=== PATIENT | female | born 1985 | race Caucasian/White ===

== ENCOUNTER 2016-11-24 08:01 | Emergency (ER) | payer OTHER ==
[~2016-11-24] VITALS: Ht 154.9 cm; Wt 80.0 kg
[~2016-11-24 08:01] MED LIST: ACET1TAB40 PO; CIPR500T4 PO; IBUP-1542 PO; IBUP800T25 PO
[2016-11-24 08:04] VITALS: Ht 154.9 cm; Wt 80.0 kg
[2016-11-24] MEDS ORDERED: ONDANSETRON (ODT) 4 MG TAB ODT STA (08:17)
[2016-11-24] MEDS ORDERED: IBUPROFEN 800 MG TAB PO ONE (08:30)
[2016-11-24] MEDS ORDERED: IBUP-1542 PO (08:51)
[2016-11-24] MEDS ORDERED: ONDA4TAB14 PO (08:51)
--- NOTE | 2016-11-24 09:12 | ERD ---
ER Documentation Chief Complaint Date/Time DATE: 11/24/16 TIME: 09:10 Chief Complaint daigle since yesterday HPI Patient is a 30-year-old female with no medical problems who presents with headache. She felt dizzy as well. It is a frontal headache bilaterally. It started yesterday but was worse today. She has had nausea and one episode of vomiting yesterday. She denies fevers. The patient tried Tylenol. She has had headache in the past. There was no call the primary doctor as of yet. She does not know the name of the primary doctor. ROS All systems reviewed and are negative except as per history of present illness. Medications Home Meds Active Scripts Ondansetron (Ondansetron Odt) 4 Mg Tab.rapdis, 4 MG PO Q6H Y for NAUSEA AND/OR VOMITING, #30 TAB Prov:JAIME PUGA MD 11/24/16 Ibuprofen* (Motrin*) 600 Mg Tab, 600 MG PO Q6H Y for PAIN AND OR ELEVATED TEMP, #30 TAB Prov:JAIME PUGA MD 11/24/16 Acetaminophen-Codeine* (Acetaminophen-Cod #3*) 300-30 Mg Tab, 1 TAB PO Q4H Y for PAIN LEVEL 6-10, #15 TAB Prov:CHO,ERIK 03/15/15 Ibuprofen* (Motrin*) 600 Mg Tab, 600 MG PO Q6 for PAIN LEVEL 1-5, #15 TAB Prov:CHO,ERIK 03/15/15 Ibuprofen* (Ibuprofen*) 800 Mg Tablet, 800 MG PO Q6H Y for PAIN AND OR ELEVATED TEMP, #30 TAB Prov:LILIA LOPEZ PA-C 01/24/15 Ciprofloxacin Hcl* (Ciprofloxacin Hcl*) 500 Mg Tablet, 500 MG PO BID for 7 Days , TAB Prov:LILIA LOPEZ PA-C 01/24/15 Allergies Allergies: Coded Allergies: No Known Allergy (Unverified , 10/11/13) PMhx/Soc History of Surgery: Yes () Hx Alcohol Use: No Hx Substance Use: No Hx Tobacco Use: No FmHx Family History: diabetes Physical Exam Vitals Vital Signs Date Time Temp Pulse Resp B/P Pulse Ox O2 Delivery O2 Flow Rate FiO2 11/24/16 08:04 98.1 83 18 138/78 Physical Exam Const: No acute distress Head: Atraumatic Eyes: Normal Conjunctiva ENT: Normal External Ears, Nose and Mouth. Neck: Full range of motion..~ No meningismus. Resp: Clear to auscultation bilaterally Cardio: Regular rate and rhythm, no murmurs Abd: Soft, non tender, non distended. Normal bowel sounds Skin: No petechiae or rashes Back: No midline or flank tenderness Ext: No cyanosis, or edema Neur: Awake and alert, cranial nerves II through XII intact, no slurred speech, strength is 5 out of 5 in all 4 extremities Psych: Normal Mood and Affect Results 24 hrs Current Medications Medications (Trade) Dose Ordered Sig/Joanne Route PRN Reason Start Time Stop Time Status Last Admin Dose Admin Ibuprofen (Motrin) 800 mg ONCE ONCE PO 11/24/16 08:30 11/24/16 08:31 DC 11/24/16 08:37 Ondansetron HCl (Zofran Odt) 4 mg ONCE STAT ODT 11/24/16 08:17 11/24/16 08:18 DC 11/24/16 08:37 Procedures/MDM Urine test is negative. Patient is a 22-year-old female with no medical problems who presents with dizziness and headache. The patient has nausea. The patient was given ibuprofen and Zofran. She is very well-appearing in the emergency department. Her neurologic exam is completely normal and I doubt stroke. I doubt a cranial hemorrhage or mass. I doubt subarachnoid hemorrhage or meningitis. I believe outpatient management is appropriate. The patient went to follow-up closely with her primary doctor within 24-48 hours and can return if symptoms worsen. She will be given a prescription for ibuprofen and Zofran. Departure Diagnosis: Primary Impression: Headache Headache type: unspecified Headache chronicity pattern: acute headache Intractability: not intractable Qualified Code: R51 - Acute nonintractable headache, unspecified headache type Condition: Fair Patient Instructions: Self-Care for Headaches Additional Instructions: Call your primary care doctor TOMORROW for an appointment during the next 1-2 days.See the doctor sooner or return here if your condition worsens before your appointment time. JAIME PUGA MD Nov 24, 2016 09:12
== END 2016-11-24 09:00 | disposition home or self-care (01) ==
LOC: FTE 08:01
DX: R51 Headache (principal); R11.2 Nausea with vomiting, unspecified
CPT/HCPCS: Z7502; Z7610; 99283

== ENCOUNTER 2016-12-04 19:37 | Emergency (ER) | payer OTHER ==
[~2016-12-04] VITALS: Ht 154.9 cm; Wt 81.5 kg
[~2016-12-04 19:37] MED LIST changes: +ONDA4TAB14 PO
[2016-12-04 20:14] VITALS: Ht 154.9 cm; Wt 81.5 kg
[2016-12-04] MEDS ORDERED: BELLADONNA/PHENOBARBITAL TAB PO STA (20:49)
[2016-12-04] MEDS ORDERED: FAMOTIDINE 20 MG TAB PO STA (20:49)
[2016-12-04] MEDS ORDERED: LIDOCAINE/MYLANTA 40 ML BTL PO STA (20:49)
[2016-12-04] MEDS ORDERED: ONDANSETRON (ODT) 4 MG TAB ODT STA (20:49)
[2016-12-04 21:39] LABS: ADD SCAN DIFF NO
[2016-12-04 21:43] LABS: BASOPHIL # 0.1 10^3/ul (0.0-0.1); BASOPHILS % 0.5 % (0.0-2.0); EOSINOPHILS # 0.1 10^3/ul (0.0-0.5); EOSINOPHILS % 0.8 % (0.0-7.0); HEMATOCRIT 41.1 % (37.0-47.0); HEMOGLOBIN 13.7 g/dl (12.0-16.0); LYMPHOCYTES # 2.9 10^3/ul (0.8-2.9); LYMPHOCYTES % 25.9 % (15.0-51.0); MEAN CORPUSCULAR HEMOGLOBIN 28.1 pg (29.0-33.0); MEAN CORPUSCULAR HGB CONC 33.3 g/dl (32.0-37.0); MEAN CORPUSCULAR VOLUME 84.2 fl (82.0-101.0); MEAN PLATELET VOLUME 9.6 fl (7.4-10.4); MONOCYTE # 0.8 10^3/ul (0.3-0.9); MONOCYTES % 7.2 % (0.0-11.0); NEUTROPHIL # 7.3 10^3/ul (1.6-7.5); NEUTROPHILS % 65.2 % (39.0-77.0); PLATELET COUNT 303 10^3/UL (140-415); RED BLOOD COUNT 4.88 10^6/ul (4.20-5.40); RED CELL DISTRIBUTION WIDTH 13.1 % (11.5-14.5); WHITE BLOOD COUNT 11.1 10^3/ul (4.8-10.8)
[2016-12-04 21:47] LABS: ADD UMIC YES; URINE BILIRUBIN (Dip) NEGATIVE (NEGATIVE); URINE BLOOD (Dip) NEGATIVE (NEGATIVE); URINE COLOR LT. YELLOW (YELLOW); URINE GLUCOSE (Dip) NEGATIVE (NEGATIVE); URINE KETONES (Dip) NEGATIVE (NEGATIVE); URINE LEUKOCYTE ESTERASE (Dip) TRACE (NEGATIVE); URINE NITRITE (Dip) NEGATIVE (NEGATIVE); URINE TOTAL PROTEIN (Dip) TRACE (NEGATIVE); URINE UROBILINOGEN (Dip) 1.0 E.U./dL (0.1-1.0)
[2016-12-04 21:53] LABS: ALBUMIN 4.8 g/dl (3.3-4.9)
[2016-12-04 21:54] LABS: POTASSIUM 3.1 mmol/L (3.5-5.1)
[2016-12-04 21:56] LABS: ALBUMIN/GLOBULIN RATIO 1.23; BILIRUBIN,INDIRECT 0.2 mg/dl (0-1.1); BILIRUBIN,TOTAL 0.2 mg/dl (0.2-1.3); CREATININE 0.59 mg/dl (0.44-1.00); TOTAL PROTEIN 8.7 g/dl (6.1-8.1)
[2016-12-04 21:57] LABS: CALCIUM 9.5 mg/dl (8.4-10.2)
--- NOTE | 2016-12-04 21:57 | RADRPT ---
PROCEDURE: US Abdomen (right upper quadrant). CLINICAL INDICATION: Right upper quadrant abdomen pain. TECHNIQUE: Multiple real-time longitudinal and transverse images of the right upper quadrant of th e abdomen were acquired utilizing a curved array transducer. Images were reviewed on a high-resoluti on PACS workstation. COMPARISON: None FINDINGS: The liver is normal in size and echogenicity. There is no focal hepatic lesion. The gallbladder is normal with no stones or wall thickening. There is no pericholecystic fluid rmoán ection. The bile ducts are normal with the common bile duct measuring 3.1 mm in diameter. The visualized portions of the pancreas are unremarkable with obscuration of the tail of the pancrea s. No free fluid is present. The right kidney measures 10.4 x 4.5 x 5.1 cm. There is normal echogenicity of the right kidney. There is no perinephric fluid collection. No hydronephrosis, mass, or calculus is seen. IMPRESSION: 1. Unremarkable right upper quadrant abdomen ultrasound. RPTAT: QQ .Trevor Ramírez MD, Date Time Electronically viewed and signed by .Trevor Ramírez MD, on 12/04/2016 21:57 .R/
[2016-12-04 22:11] LABS: SQUAMOUS EPITHELIAL CELL,UR MANY
[2016-12-04 22:12] LABS: BACTERIA,URINE MODERATE; URINE RBCS 0-2 /HPF (0)
[2016-12-04] MEDS ORDERED: ONDA4TAB8 PO (22:30)
[2016-12-04] MEDS ORDERED: DICY10CA60 PO (22:31)
--- NOTE | 2016-12-04 22:36 | ERD ---
ER Documentation Chief Complaint Date/Time DATE: 12/04/16 TIME: 22:34 Chief Complaint Mid AP x2 days. Nausea and vomiting HPI This is a 31-year-old female that presents to the ER with mid abdominal pain for the last 2 days. Patient today developed nausea and vomiting. Vomiting is nonbilious nonbloody. She denies any diarrhea. She denies any chest pain shortness of breath. Patient denies any urinary frequency or dysuria. Abdominal pain is severe and 9/cramping in nature. Patient tried taking ibuprofen for the pain however did not work. Her last normal menstrual period was October 30, 2016. ROS 12 point review of systems was done, all negative except per HPI. Medications Home Meds Active Scripts Dicyclomine Hcl* (Bentyl*) 10 Mg Capsule, 10 MG PO QID for 3 Days, CAP Prov:ANNIKA GOMEZ 12/04/16 Ondansetron Hcl* (Zofran*) 4 Mg Tablet, 4 MG PO Q6H for NAUSEA AND/OR VOMITING, #30 TAB Prov:ANNIKA GOMEZ 12/04/16 Ondansetron (Ondansetron Odt) 4 Mg Tab.rapdis, 4 MG PO Q6H Y for NAUSEA AND/OR VOMITING, #30 TAB Prov:JAIME PUGA MD 11/24/16 Ibuprofen* (Motrin*) 600 Mg Tab, 600 MG PO Q6H Y for PAIN AND OR ELEVATED TEMP, #30 TAB Prov:JAIME PUGA MD 11/24/16 Acetaminophen-Codeine* (Acetaminophen-Cod #3*) 300-30 Mg Tab, 1 TAB PO Q4H Y for PAIN LEVEL 6-10, #15 TAB Prov:CHO,ERIK 03/15/15 Ibuprofen* (Motrin*) 600 Mg Tab, 600 MG PO Q6 for PAIN LEVEL 1-5, #15 TAB Prov:CHO,ERIK 03/15/15 Ibuprofen* (Ibuprofen*) 800 Mg Tablet, 800 MG PO Q6H Y for PAIN AND OR ELEVATED TEMP, #30 TAB Prov:LILIA LOPEZ PA-C 01/24/15 Ciprofloxacin Hcl* (Ciprofloxacin Hcl*) 500 Mg Tablet, 500 MG PO BID for 7 Days , TAB Prov:LILIA LOPEZ PA-C 01/24/15 Allergies Allergies: Coded Allergies: No Known Allergy (Unverified , 10/11/13) PMhx/Soc History of Surgery: Yes () Hx Alcohol Use: No Hx Substance Use: No Hx Tobacco Use: No Smoking Status: Never smoker Physical Exam Vitals Vital Signs Date Time Temp Pulse Resp B/P Pulse Ox O2 Delivery O2 Flow Rate FiO2 12/04/16 20:14 97.4 101 20 135/57 100 Physical Exam GENERAL: The patient is well developed and appropriate for usual state of health , in no apparent distress. HEENT: Atraumatic. CHEST: Clear to auscultation bilaterally. There are no rales, wheezes or rhonchi. HEART: Regular rate and rhythm. No murmurs, clicks, rubs or gallops. ABDOMEN: Soft, nontender and nondistended. Good bowel sounds. No rebound or guarding. No gross peritonitis. No gross organomegaly or masses. No Zaragoza sign or McBurney point tenderness. No pulsatile masses BACK: No midline or flank tenderness. NEURO: Alert and oriented Result Diagram: 12/04/16210912/04/162109 Results 24 hrs Laboratory Tests Test 12/04/16 21:10 White Blood Count 11.110^3/ul Red Blood Count 4.8810^6/ul Hemoglobin 13.7g/dl Hematocrit 41.1% Mean Corpuscular Volume 84.2fl Mean Corpuscular Hemoglobin 28.1pg Mean Corpuscular Hemoglobin Concent 33.3g/dl Red Cell Distribution Width 13.1% Platelet Count 16928^3/UL Mean Platelet Volume 9.6fl Neutrophils % 65.2% Lymphocytes % 25.9% Monocytes % 7.2% Eosinophils % 0.8% Basophils % 0.5% Nucleated Red Blood Cells % 0.0/100WBC Neutrophils # 7.310^3/ul Lymphocytes # 2.910^3/ul Monocytes # 0.810^3/ul Eosinophils # 0.110^3/ul Basophils # 0.110^3/ul Nucleated Red Blood Cells # 0.010^3/ul Urine Color LT. YELLOW Urine Clarity CLEAR Urine pH 8.5 Urine Specific [place] 1.015 Urine Ketones NEGATIVE Urine Nitrite NEGATIVE Urine Bilirubin NEGATIVE Urine Urobilinogen 1.0 E.U./dL Urine Leukocyte Esterase TRACE Urine Microscopic RBC 0-2/HPF Urine Microscopic WBC 10-25/HPF Urine Squamous Epithelial Cells MANY Urine Amorphous Urates FEW Urine Bacteria MODERATE Urine Hemoglobin NEGATIVE Urine Glucose NEGATIVE% Urine Total Protein TRACE Sodium Level 144mmol/L Potassium Level 3.1mmol/L Chloride Level 102mmol/L Carbon Dioxide Level 29mmol/L Anion Gap 16 Blood Urea Nitrogen 10mg/dl Creatinine 0.59mg/dl Glucose Level 73mg/dl Calcium Level 9.5mg/dl Total Bilirubin 0.2mg/dl Direct Bilirubin 0.00mg/dl Indirect Bilirubin 0.2mg/dl Aspartate Amino Transf (AST/SGOT) 23IU/L Alanine Aminotransferase (ALT/SGPT) 28IU/L Alkaline Phosphatase 97IU/L Total Protein 8.7g/dl Albumin 4.8g/dl Globulin 3.90g/dl Albumin/Globulin Ratio 1.23 Lipase 106U/L Current Medications Medications (Trade) Dose Ordered Sig/Joanne Route PRN Reason Start Time Stop Time Status Last Admin Dose Admin Famotidine (Pepcid) 20 mg ONCE STAT PO 12/04/16 20:49 12/04/16 20:51 DC 12/04/16 21:47 Miscellaneous Medication (Gi Cocktail (2)) 40 ml ONCE STAT PO 12/04/16 20:49 12/04/16 20:51 DC 12/04/16 21:47 Belladonna/ Phenobarbital () 2 tab ONCE STAT PO 12/04/16 20:49 12/04/16 20:51 DC 12/04/16 21:47 Ondansetron HCl (Zofran Odt) 4 mg ONCE STAT ODT 12/04/16 20:49 12/04/16 20:51 DC 12/04/16 21:08 Procedures/MDM Differential Diagnosis: GERD, gastritis, peptic ulcer disease, pancreatitis, cholecystitis, choledocholithiasis, biliary colic, cholangitis, [id number]-[id number] , ACS/MO, Pnuemonia. There is no evidence of acute abdomen. She may be having a viral process. Does not appear dehydrated and there is no electrolyte abnormalities. There is no liver or kidney dysfunction. Suspicion for pancreatitis is low. Suspicion for gallbladder disease is low. I doubt ACS/MO as patient has denied any chest pain. Patient for appendicitis is low as patient does not have any right lower quadrant pain. Patient will be sent home with Zofran and with Riki. She is to follow-up with her primary care doctor within 1-2 days or return to ER sooner if symptoms worsen. My medical decision making was shared with the patient she understands and agrees with plan. Departure Diagnosis: Primary Impression: Abdominal pain Condition: Stable Patient Instructions: Abdominal Pain Referrals: KENRICK BURNETT (PCP) Additional Instructions: Call your primary care doctor TOMORROW for an appointment during the next 1-2 days.See the doctor sooner or return here if your condition worsens before your appointment time. ANNIKA GOMEZ Dec 04, 2016 22:36
[2016-12-04 22:59] VITALS: BP 115/81; PULSE 82; RESP 16
== END 2016-12-04 23:01 | disposition home or self-care (01) ==
LOC: FTE 19:37
DX: R10.9 Unspecified abdominal pain (principal); R11.2 Nausea with vomiting, unspecified
CPT/HCPCS: 36415; 76705; 80053; 81001; 83690; 85025; Z7502; Z7610; 81003

== ENCOUNTER 2017-06-20 10:56 | Emergency (ER) | payer OTHER ==
[~2017-06-20] VITALS: Ht 152.4 cm; Wt 89.0 kg
[~2017-06-20 10:56] MED LIST changes: +DICY10CA60 PO; +ONDA4TAB8 PO
[2017-06-20 11:06] VITALS: Ht 152.4 cm; Wt 89.0 kg
--- NOTE | 2017-06-20 12:29 | ERD ---
ER Documentation Chief Complaint Chief Complaint pelvic pain x1wk, denies vag bleed or painful urination HPI 31y/o female patient, with no significant medical history, presents to the emergency department with daughter c/o bilateral pelvic pain, that started 7 days ago. pain is dull, constant, rated 8/10, without radiation. The symptoms are associated with malaise. Denies fever, chills, N/V/D, no dysuria, no vaginal discharge, LMP 3 weeks ago. No history of previous episodes. Treatment attempted: None ROS All systems reviewed and are negative except as per history of present illness. Medications Home Meds Active Scripts Dicyclomine Hcl* (Bentyl*) 10 Mg Capsule, 10 MG PO QID for 3 Days, CAP Prov:ANNIKA GOMEZ 12/04/16 Ondansetron Hcl* (Zofran*) 4 Mg Tablet, 4 MG PO Q6H for NAUSEA AND/OR VOMITING, #30 TAB Prov:ANNIKA GOMEZ 12/04/16 Ondansetron (Ondansetron Odt) 4 Mg Tab.rapdis, 4 MG PO Q6H Y for NAUSEA AND/OR VOMITING, #30 TAB Prov:JAIME PUGA MD 11/24/16 Ibuprofen* (Motrin*) 600 Mg Tab, 600 MG PO Q6H Y for PAIN AND OR ELEVATED TEMP, #30 TAB Prov:JAIME PUGA MD 11/24/16 Acetaminophen-Codeine* (Acetaminophen-Cod #3*) 300-30 Mg Tab, 1 TAB PO Q4H Y for PAIN LEVEL 6-10, #15 TAB Prov:CHO,ERIK 03/15/15 Ibuprofen* (Motrin*) 600 Mg Tab, 600 MG PO Q6 for PAIN LEVEL 1-5, #15 TAB Prov:CHO,ERIK 03/15/15 Ibuprofen* (Ibuprofen*) 800 Mg Tablet, 800 MG PO Q6H Y for PAIN AND OR ELEVATED TEMP, #30 TAB Prov:LILIA LOPEZ PA-C 01/24/15 Ciprofloxacin Hcl* (Ciprofloxacin Hcl*) 500 Mg Tablet, 500 MG PO BID for 7 Days , TAB Prov:LILIA LOPEZ PA-C 01/24/15 Allergies Allergies: Coded Allergies: No Known Allergy (Unverified , 10/11/13) PMhx/Soc History of Surgery: Yes () Hx Alcohol Use: No Hx Substance Use: No Hx Tobacco Use: No Physical Exam Vitals Vital Signs Date Time Temp Pulse Resp B/P Pulse Ox O2 Delivery O2 Flow Rate FiO2 06/20/17 11:06 98.3 88 18 127/80 98 Physical Exam Patient is in no acute distress, vital signs stable. Alert and fully oriented. EYES: PERRLA, EOMI, Sclera and conjunctiva appear normal. EARS: Canals clear, tympanic membranes WNL THROAT: Normal oropharynx. NECK: Supple, No lymphadenopathy. Full ROM without pain or tenderness. HEART: RRR, no rubs, murmurs, clicks or gallops. LUNGS: Clear to auscultation. ABDOMEN: Soft, mild tenderness to deep palpation in pelvic area. No masses or hepatosplenomegaly. EXTREMITIES: No edema bilaterally. MUSC: Full ROM, no deformity, normal back exam Result Diagram: 06/20/17 1247 06/20/17 1247 Results 24 hrs Laboratory Tests Test 06/20/17 12:47 06/20/17 12:59 06/20/17 13:00 White Blood Count 11.310^3/ul Red Blood Count 4.8310^6/ul Hemoglobin 13.9g/dl Hematocrit 41.5% Mean Corpuscular Volume 85.9fl Mean Corpuscular Hemoglobin 28.8pg Mean Corpuscular Hemoglobin Concent 33.5g/dl Red Cell Distribution Width 13.0% Platelet Count 16162^3/UL Mean Platelet Volume 9.7fl Neutrophils % 69.5% Lymphocytes % 24.5% Monocytes % 4.3% Eosinophils % 0.8% Basophils % 0.3% Nucleated Red Blood Cells % 0.0/100WBC Neutrophils # 7.810^3/ul Lymphocytes # 2.810^3/ul Monocytes # 0.510^3/ul Eosinophils # 0.110^3/ul Basophils # 0.010^3/ul Nucleated Red Blood Cells # 0.010^3/ul Sodium Level 143mmol/L Potassium Level 3.4mmol/L Chloride Level 106mmol/L Carbon Dioxide Level 27mmol/L Anion Gap 13 Blood Urea Nitrogen 5mg/dl Creatinine 0.63mg/dl Glucose Level 85mg/dl Calcium Level 10.1mg/dl Total Bilirubin 0.3mg/dl Direct Bilirubin 0.00mg/dl Indirect Bilirubin 0.3mg/dl Aspartate Amino Transf (AST/SGOT) 24IU/L Alanine Aminotransferase (ALT/SGPT) 37IU/L Alkaline Phosphatase 96IU/L Total Protein 8.2g/dl Albumin 4.5g/dl Globulin 3.70g/dl Albumin/Globulin Ratio 1.21 Lipase 117U/L Urine Color YELLOW Urine Clarity CLEAR Urine pH 7.0 Urine Specific [place] 1.020 Urine Ketones TRACEmg/dL Urine Nitrite NEGATIVEmg/dL Urine Bilirubin NEGATIVEmg/dL Urine Urobilinogen NEGATIVEmg/dL Urine Leukocyte Esterase NEGATIVELeu/ul Urine Hemoglobin NEGATIVEmg/dL Urine Glucose NEGATIVEmg/dL Urine Total Protein NEGATIVEmg/dl Urine Test POSITIVE Beta HCG, Quantitative 465.7mIU/ml PROCEDURE: US Pelvis. CLINICAL INDICATION: Pelvic pain for 1 week. TECHNIQUE: Multiple sonographic images of the pelvis were obtained utilizing a transabdominal and endovaginal technique. The images were reviewed on a PACS workstation. COMPARISON: OB sonogram 01/24/2015. FINDINGS: The uterus is visualized and measures 8.8 cm sagittal by 4.8 cm AP by 6.7 cm transverse.. The endometrial echo complex is normal and measures 1.2 cm. Small Nabothian cysts are noted on the cervix.. There is no evidence for free fluid. The right ovary has a normal echotexture and measures 2.8 by 2.2 x 3.1 cm . The left ovary has a normal echotexture and measures 2.3 x 2.4 x 2.4 cm. No adnexal masses are noted. IMPRESSION: Unremarkable pelvic ultrasound. Procedures/MDM 31 y/o female, , presents to the ED c/o pelvic pain for 7 days, the patient was found to be . Vital signs stable, Physical exam unremarkable, no evidence of acute abdomen. Differential diagnosis include but not limited to: Ectopic , threatened , UTI, appendicitis, ovarian cyst. Pertinent Data: Labs: CBC: normal, CMP: normal kidney and liver function, normal electrolytes. Lipase: normal Pelvic US: The uterus is visualized and measures 8.8 cm sagittal by 4.8 cm AP by 6.7 cm transverse.. The endometrial echo complex is normal and measures 1.2 cm. Small Nabothian cysts are noted on the cervix.. There is no evidence for free fluid. The right ovary has a normal echotexture and measures 2.8 by 2.2 x 3.1 cm . The left ovary has a normal echotexture and measures 2.3 x 2.4 x 2.4 cm. No adnexal masses are noted. Physical examination and clinical presentation consistent most likely with pelvic pain during , without acute abdomen. During the ED course the patient remained stable. Results and medical impression discussed with patient who agrees with management. The patient will be discharged home with precautions. If symptoms persist, worsen or new symptoms develop, then patient is instructed to follow-up with the primary care provider. If the patient is unable to see the primary care provider, then return to the ED immediately. Departure Diagnosis: Primary Impression: Additional Impression: Pelvic pain affecting Condition: Stable CARROLL HOLLINS MD Jun 20, 2017 12:29
[2017-06-20 13:02] LABS: BASOPHILS % 0.3 % (0.0-2.0); EOSINOPHILS # 0.1 10^3/ul (0.0-0.5); EOSINOPHILS % 0.8 % (0.0-7.0); HEMATOCRIT 41.5 % (37.0-47.0); HEMOGLOBIN 13.9 g/dl (12.0-16.0); LYMPHOCYTES # 2.8 10^3/ul (0.8-2.9); LYMPHOCYTES % 24.5 % (15.0-51.0); MEAN CORPUSCULAR HEMOGLOBIN 28.8 pg (29.0-33.0); MEAN CORPUSCULAR HGB CONC 33.5 g/dl (32.0-37.0); MEAN CORPUSCULAR VOLUME 85.9 fl (82.0-101.0); MEAN PLATELET VOLUME 9.7 fl (7.4-10.4); MONOCYTE # 0.5 10^3/ul (0.3-0.9); MONOCYTES % 4.3 % (0.0-11.0); NEUTROPHIL # 7.8 10^3/ul (1.6-7.5); NEUTROPHILS % 69.5 % (39.0-77.0); PLATELET COUNT 300 10^3/UL (140-415); RED BLOOD COUNT 4.83 10^6/ul (4.20-5.40); WHITE BLOOD COUNT 11.3 10^3/ul (4.8-10.8)
[2017-06-20 13:16] LABS: ADD UMIC NO; UR ASCORBIC ACID NEGATIVE (NEGATIVE); UR BILIRUBIN (Dip) NEGATIVE (NEGATIVE); UR BLOOD (Dip) NEGATIVE (NEGATIVE); UR CLARITY CLEAR (CLEAR); UR COLOR YELLOW (YELLOW); UR GLUCOSE (Dip) NEGATIVE (NEGATIVE); UR KETONES (Dip) TRACE mg/dL (NEGATIVE); UR LEUKOCYTE ESTERASE (Dip) NEGATIVE Leu/ul (NEGATIVE); UR NITRITE (Dip) NEGATIVE (NEGATIVE); UR TOTAL PROTEIN (Dip) NEGATIVE (NEGATIVE); UR UROBILINOGEN (Dip) NEGATIVE (NEGATIVE)
[2017-06-20 13:23] LABS: ALBUMIN 4.5 g/dl (3.3-4.9); ALBUMIN/GLOBULIN RATIO 1.21; BILIRUBIN,INDIRECT 0.3 mg/dl (0-1.1); BILIRUBIN,TOTAL 0.3 mg/dl (0.2-1.3); CALCIUM 10.1 mg/dl (8.4-10.2); CREATININE 0.63 mg/dl (0.44-1.00); POTASSIUM 3.4 mmol/L (3.5-5.1); TOTAL PROTEIN 8.2 g/dl (6.1-8.1)
[2017-06-20 15:26] VITALS: BP 122/78; PULSE 66; RESP 18; TEMP 98.3
== END 2017-06-20 15:27 | disposition home or self-care (01) ==
LOC: FTE 10:56
DX: R10.2 Pelvic and perineal pain (principal); Z33.1 Pregnant state, incidental
CPT/HCPCS: 76801; 76817; 80053; 81003; 83690; 84702; 84703; 85025; 86900; 86901; Z7502

== ENCOUNTER 2017-08-04 05:13 | Emergency (ER) | payer OTHER ==
[~2017-08-04] VITALS: Ht 152.4 cm; Wt 85.9 kg
[2017-08-04 05:25] VITALS: Ht 152.4 cm; Wt 85.9 kg
[2017-08-04 05:30] VITALS: BP 129/77; RESP 17; TEMP 98.3
--- NOTE | 2017-08-04 07:42 | RADRPT ---
PROCEDURE: OB Ultrasound. CLINICAL INDICATION: Abdominal and pelvic pain. Vomiting times 1 day. TECHNIQUE: Ultrasound of the pelvis was performed with transabdominal sonography in the axial and sa gittal planes. COMPARISON: Pelvic ultrasound from 06/20/2017 FINDINGS: The uterus appears normal in size and echotexture. There is an intrauterine gestational sac with vis ualization of the pole which demonstrates cardiac activity at 154 beats per minute. The mean c rown-rump length is 5.33 cm consistent with a 23-hlxu-6-day gestation. There is a probable tiny subc horionic hemorrhage present. Ovaries appear normal in size and echotexture bilaterally. The right ov melvin measures 3.9 x 3.2 x 3.8 cm. The left ovary measures 2.2 x 3.0 x 2.6 cm. There are no adnexal ma sses and no free fluid seen in the cul-de-sac. IMPRESSION: 1. Single living intrauterine gestation with a mean gestational age by ultrasound of 12 weeks 0 da ys plus or minus 8 days. Estimated date of delivery by ultrasound criteria 02 16 20:18. 2. Probable tiny subchorionic hemorrhage.. RPTAT: [facility] Physician Renetta Date Time Electronically viewed and signed by Physician Renetta on 08/04/2017 07:41 /
[2017-08-04 07:49] LABS: BASOPHILS % 0.2 % (0.0-2.0); EOSINOPHILS # 0.1 10^3/ul (0.0-0.5); EOSINOPHILS % 0.6 % (0.0-7.0); HEMATOCRIT 37.7 % (37.0-47.0); HEMOGLOBIN 13.3 g/dl (12.0-16.0); LYMPHOCYTES # 2.1 10^3/ul (0.8-2.9); LYMPHOCYTES % 14.3 % (15.0-51.0); MEAN CORPUSCULAR HEMOGLOBIN 29.8 pg (29.0-33.0); MEAN CORPUSCULAR HGB CONC 35.3 g/dl (32.0-37.0); MEAN CORPUSCULAR VOLUME 84.5 fl (82.0-101.0); MEAN PLATELET VOLUME 9.4 fl (7.4-10.4); MONOCYTE # 0.5 10^3/ul (0.3-0.9); MONOCYTES % 3.6 % (0.0-11.0); NEUTROPHIL # 11.8 10^3/ul (1.6-7.5); NEUTROPHILS % 80.7 % (39.0-77.0); PLATELET COUNT 235 10^3/UL (140-415); RED BLOOD COUNT 4.46 10^6/ul (4.20-5.40); RED CELL DISTRIBUTION WIDTH 12.6 % (11.5-14.5); WHITE BLOOD COUNT 14.7 10^3/ul (4.8-10.8)
[2017-08-04 07:59] LABS: ADD UMIC YES; UR ASCORBIC ACID NEGATIVE (NEGATIVE); UR BILIRUBIN (Dip) NEGATIVE (NEGATIVE); UR BLOOD (Dip) 1+ mg/dL (NEGATIVE); UR CLARITY CLEAR (CLEAR); UR COLOR YELLOW (YELLOW); UR GLUCOSE (Dip) NEGATIVE (NEGATIVE); UR KETONES (Dip) 1+ mg/dL (NEGATIVE); UR LEUKOCYTE ESTERASE (Dip) NEGATIVE Leu/ul (NEGATIVE); UR MUCUS MANY /HPF (NONE SEEN); UR NITRITE (Dip) NEGATIVE (NEGATIVE); UR RBC 4 /HPF (0-5); UR SPECIFIC GRAVITY (Dip) 1.034 (1.003-1.030); UR TOTAL PROTEIN (Dip) 1+ mg/dl (NEGATIVE); UR UROBILINOGEN (Dip) NEGATIVE (NEGATIVE)
[2017-08-04] MEDS ORDERED: ACET500C5 PO (08:27)
[2017-08-04 09:44] VITALS: PULSE 88
--- NOTE | 2017-08-04 17:38 | ERD ---
ER Documentation Chief Complaint Chief Complaint N/V/ Chills/Diarrhea/Abd & Flank Pain HPI 31-year-old female who is approximately 12 weeks is complaining of abdominal pain, nausea, vomiting, and diarrhea since yesterday. Patient reports abdominal pain is constant, cramping like. She had 2 episode of nonbilious and nonbloody vomiting and 2 episode of nonbloody diarrhea. Patient is , LMP 04/06/2017. Denies fever or chills. Denies dysuria. Denies vaginal bleeding. ROS All systems reviewed and are negative except as per history of present illness. Medications Home Meds Active Scripts Acetaminophen* (Tylophen*) 500 Mg Capsule, 1 CAP PO Q6H Y for PAIN AND OR ELEVATED TEMP, #20 CAP Prov:VIDAL AGUILAR PLATE KEEPER 08/04/17 Dicyclomine Hcl* (Bentyl*) 10 Mg Capsule, 10 MG PO QID for 3 Days, CAP Prov:ANNIKA GOMEZ C 12/04/16 Ondansetron Hcl* (Zofran*) 4 Mg Tablet, 4 MG PO Q6H for NAUSEA AND/OR VOMITING, #30 TAB Prov:ANNIKA GOMEZ 12/04/16 Ondansetron (Ondansetron Odt) 4 Mg Tab.rapdis, 4 MG PO Q6H Y for NAUSEA AND/OR VOMITING, #30 TAB Prov:JAIME PUGA MD 11/24/16 Ibuprofen* (Motrin*) 600 Mg Tab, 600 MG PO Q6H Y for PAIN AND OR ELEVATED TEMP, #30 TAB Prov:JAIME PUGA MD 11/24/16 Acetaminophen-Codeine* (Acetaminophen-Cod #3*) 300-30 Mg Tab, 1 TAB PO Q4H Y for PAIN LEVEL 6-10, #15 TAB Prov:CHO,ERIK 03/15/15 Ibuprofen* (Motrin*) 600 Mg Tab, 600 MG PO Q6 for PAIN LEVEL 1-5, #15 TAB Prov:CHO,ERIK 03/15/15 Ibuprofen* (Ibuprofen*) 800 Mg Tablet, 800 MG PO Q6H Y for PAIN AND OR ELEVATED TEMP, #30 TAB Prov:LILIA LOPEZ PA-C 01/24/15 Ciprofloxacin Hcl* (Ciprofloxacin Hcl*) 500 Mg Tablet, 500 MG PO BID for 7 Days , TAB Prov:LILIA LOPEZ PA-C 01/24/15 Allergies Allergies: Coded Allergies: No Known Allergy (Unverified , 08/04/17) PMhx/Soc History of Surgery: Yes (caesarian section x 1 2010) Anesthesia Reaction: No Hx Alcohol Use: No Hx Substance Use: No Hx Tobacco Use: No Smoking Status: Never smoker Physical Exam Vitals Vital Signs Date Time Temp Pulse Resp B/P Pulse Ox O2 Delivery O2 Flow Rate FiO2 08/04/17 09:44 88 08/04/17 05:30 98.3 102 17 129/77 97 Room Air 08/04/17 05:25 98.3 102 17 129/77 97 Physical Exam General: Well-developed, well-nourished, conscious and coherent, in no distress Skin: Warm and dry without rash, good texture and turgor Head: Normocephalic without evidence of trauma Eyes: Sclera and conjunctivae normal; pupils equal, round, and reactive to light; extraocular movements are intact Chest: Normal AP diameter. Good expansion without retractions. Nontender. Lungs are clear to auscultate bilaterally with good tidal volume Heart: Regular rate and rhythm. No murmur, rub, or gallops heard Abdomen: Soft, diffusely tender without masses, guarding, or rebound. Bowel sounds are active. No hepatosplenomegaly Back: Without spinal or CVA tenderness Extremities: Full range of motion. Good strength bilaterally. No clubbing, cyanosis, or edema. Peripheral pulses are intact. Sensation intact Neuro: Alert and oriented 4, GCS 15. Cranial nerves grossly intact. Motor and sensory exams nonfocal. Moves all extremities. Speech clear. Gait normal Result Diagram: 08/04/17 0739 Results 24 hrs Laboratory Tests Test 08/04/17 07:34 08/04/17 07:39 Urine Color YELLOW Urine Clarity CLEAR Urine pH 5.0 Urine Specific [place] 1.034 Urine Ketones 1+mg/dL Urine Nitrite NEGATIVEmg/dL Urine Bilirubin NEGATIVEmg/dL Urine Urobilinogen NEGATIVEmg/dL Urine Leukocyte Esterase NEGATIVELeu/ul Urine Microscopic RBC 4/HPF Urine Microscopic WBC 3/HPF Urine Mucus MANY/HPF Urine Hemoglobin 1+mg/dL Urine Glucose NEGATIVEmg/dL Urine Total Protein 1+mg/dl White Blood Count 14.710^3/ul Red Blood Count 4.4610^6/ul Hemoglobin 13.3g/dl Hematocrit 37.7% Mean Corpuscular Volume 84.5fl Mean Corpuscular Hemoglobin 29.8pg Mean Corpuscular Hemoglobin Concent 35.3g/dl Red Cell Distribution Width 12.6% Platelet Count 15207^3/UL Mean Platelet Volume 9.4fl Neutrophils % 80.7% Lymphocytes % 14.3% Monocytes % 3.6% Eosinophils % 0.6% Basophils % 0.2% Nucleated Red Blood Cells % 0.0/100WBC Neutrophils # 11.810^3/ul Lymphocytes # 2.110^3/ul Monocytes # 0.510^3/ul Eosinophils # 0.110^3/ul Basophils # 0.010^3/ul Nucleated Red Blood Cells # 0.010^3/ul Beta HCG, Quantitative 044433.0mIU/ml PROCEDURE: OB Ultrasound. CLINICAL INDICATION: Abdominal and pelvic pain. Vomiting times 1 day. TECHNIQUE: Ultrasound of the pelvis was performed with transabdominal sonography in the axial and sagittal planes. COMPARISON: Pelvic ultrasound from 06/20/2017 FINDINGS: The uterus appears normal in size and echotexture. There is an intrauterine gestational sac with visualization of the pole which demonstrates cardiac activity at 154 beats per minute. The mean crown-rump length is 5.33 cm consistent with a 72-rgmw-7-day gestation. There is a probable tiny subchorionic hemorrhage present. Ovaries appear normal in size and echotexture bilaterally. The right ovary measures 3.9 x 3.2 x 3.8 cm. The left ovary measures 2.2 x 3.0 x 2.6 cm. There are no adnexal masses and no free fluid seen in the cul-de-sac. IMPRESSION: 1. Single living intrauterine gestation with a mean gestational age by ultrasound of 12 weeks 0 days plus or minus 8 days. Estimated date of delivery by ultrasound criteria 02 16 20:18. 2. Probable tiny subchorionic hemorrhage.. RPTAT: [facility] Physician Renetta Date Time Electronically viewed and signed by Jake Fernández Physician on 08/04/2017 07: 41 JH/ CC: VIDAL AGUILAR. PLATE KEEPER Procedures/MDM Well-appearing 31-year-old female who is approximately 12 weeks presents to ED with abdominal pain, vomiting, diarrhea 2 days. OB ultrasound was obtained, which showed normal intrauterine of approximately 12 weeks 0 days, heart tone was 54 bpm. Patient is reassured. CBC showed mild leukocytosis of 14.7. Patient does not have any right upper or right lower quadrant tenderness on palpation. I doubt acute appendicitis, cholecystitis, pancreatitis, bowel obstruction, or other acute abdomen. Likely patient's vomiting diarrhea and abdominal pain is due to viral gastroenteritis. She advised to increase fluid intake, and eat a bland diet for next several days. Patient appears well, stable for discharge and outpatient management. Medical decision making shared with patient and family. Education provided to patient and family. Patient and family expressed understanding of the plan. Medications on discharge: Tylenol. Follow-up: Primary care provider in 2-3 days or return to ED if worse. Disclaimer: Inadvertent spelling and grammatical errors are likely due to EHR/ dictation software use and do not reflect on the overall quality of patient care. Also, please note that the electronic time recorded on this note does not necessarily reflect the actual time of the patient encounter. Departure Diagnosis: Primary Impression: Viral gastroenteritis Additional Impression: Normal IUP (intrauterine ) on ultrasound Condition: Stable Patient Instructions: Gastroenteritis, Viral (6Y-Adult) Additional Instructions: Call your primary care doctor TOMORROW for an appointment during the next 2-3 days.See the doctor sooner or return here if your condition worsens before your appointment time. VIDAL AGUILAR NP Aug 04, 2017 17:38
== END 2017-08-04 09:45 | disposition home or self-care (01) ==
LOC: FTE 05:13
DX: O98.511 Other viral diseases complicating pregnancy, first trimester (principal); A08.4 Viral intestinal infection, unspecified; R10.2 Pelvic and perineal pain; Z3A.12 12 weeks gestation of pregnancy
CPT/HCPCS: 76801; 81001; 84702; 85025; 86900; 86901; Z7502

== ENCOUNTER 2018-01-19 21:27 | Outpatient (CLI) | END 2018-01-20 01:42 | disposition home or self-care (01) ==

== ENCOUNTER 2018-01-21 20:57 | Outpatient (CLI) | END 2018-01-22 00:13 | disposition home or self-care (01) ==

== ENCOUNTER 2018-01-25 19:00 | Inpatient (IN) | END 2018-01-28 14:30 | disposition home or self-care (01) | DRG 766 ==

== ENCOUNTER 2018-08-18 23:08 | Emergency (ER) | payer OTHER ==
[~2018-08-18] VITALS: Wt 92.2 kg
[~2018-08-18 23:08] MED LIST changes: -ACET1TAB40 PO; -CIPR500T4 PO; -DICY10CA60 PO; +FER325 PO; +FOLI-49 PO; -IBUP-1542 PO; -IBUP800T25 PO; -ONDA4TAB14 PO; -ONDA4TAB8 PO; +PNV11TAB PO
[2018-08-18 23:10] VITALS: BP 134/88; PULSE 94; RESP 20
--- NOTE | 2018-08-19 00:31 | ERD ---
ER Documentation Chief Complaint Chief Complaint R side dental pain - will be seeing dentist soon- no swelling noted HPI 32-year-old female presents with dental pain secondary to Tooth which she noticed 2 days ago. She made an appointment to see dentist but is not until August 25. She has been taking Tylenol at home but the pain is no longer controlled by this medication. She has not had any fever. She is tolerating oral intake. ROS All systems reviewed and are negative except as per history of present illness. Medications Home Meds Reported Medications Ferrous Sulfate* (Ferrous Sulfate*) 325 Mg Tabec, 325 MG PO DAILY, TAB 01/25/18 Folic Acid* (Folic Acid*) 1 Mg Tablet, 1 MG PO DAILY, TAB 01/25/18 [id number] ( 19) 1 Each Tablet, 1 TAB PO DAILY, TAB 01/19/18 Allergies Allergies: Coded Allergies: No Known Allergy (Unverified , 01/21/18) PMhx/Soc History of Surgery: Yes (caesarian section x 2010) Anesthesia Reaction: No Hx Alcohol Use: No Hx Substance Use: No Hx Tobacco Use: No FmHx Family History: No diabetes Physical Exam Vitals Vital Signs Date Temp Pulse Resp B/P (MAP) Pulse Ox O2 O2 Flow FiO2 Time Delivery Rate 08/18/18 99.2 94 20 134/88 97 23:10 (103) Physical Exam Const: No acute distress Head: Atraumatic Eyes: Normal Conjunctiva ENT: Normal External Ears, Nose. Cracked right lower molar, no swelling, oropharynx clear Neck: Full range of motion. No meningismus. Resp: Clear to auscultation bilaterally Cardio: Regular rate and rhythm, no murmurs Procedures/MDM Patient has dental pain. She is discharged with amoxicillin and pain medication. Patient counseled regarding my diagnostic impression and care plan. Prior to discharge all questions answered. Pt agrees with treatment plan and understands strict return precautions. Pt is instructed to follow up with primary care provider within 24-48 hours. Precautionary instructions provided including instructions to return to the ER if not improving or for any worsening or changing symptoms or concerns. Departure Diagnosis: Primary Impression: Pain, dental Condition: Stable MATEO ROSE PA-C Aug 19, 2018 00:31
[2018-08-19] MEDS ORDERED: AMOX500C2 PO (00:32)
[2018-08-19] MEDS ORDERED: HYDR-4011 PO (00:32)
[2018-08-19] MEDS ORDERED: IBUP800T48 PO (00:32)
== END 2018-08-19 01:45 | disposition home or self-care (01) ==
LOC: FTE 23:08
DX: K08.89 Other specified disorders of teeth and supporting structures (principal)
CPT/HCPCS: 99283

== ENCOUNTER 2019-03-25 06:19 | Emergency (ER) | payer OTHER ==
[~2019-03-25] VITALS: Ht 157.5 cm; Wt 96.3 kg
[~2019-03-25 06:19] MED LIST changes: +AMOX500C2 PO; +CLIN300C10 PO; +HYDR-3980 PO; +HYDR-4011 PO; +IBUP800T48 PO
[2019-03-25 06:25] VITALS: BP 147/82; PULSE 85; RESP 18; Ht 157.5 cm; Wt 96.3 kg
--- NOTE | 2019-03-25 06:54 | ERD ---
ER Documentation Chief Complaint Chief Complaint dental pain x2 days HPI 33-year-old female who presents with complaint of dental pain over the past 2 days. Patient states she has a tooth that broke over a month ago and since that time is having significantly worsening pain to that area. Saw dentist about a month ago and referred to [facility] for tooth extraction. She presents today because of worsening pain. She otherwise denies fevers, chills, dysphagia, or any other concerning symptoms. She has had swelling to left rear molar tooth which is broken with worsening pain. She otherwise denies allergies to medications. Has been taking Advil and Motrin for pain which is no longer are effective. Patient has been unable to get an appointment soon at [facility] clinic. ROS All systems reviewed and are negative except as per history of present illness. Medications Home Meds Active Scripts Clindamycin Hcl* (Clindamycin Hcl*) 300 Mg Capsule, 300 MG PO TID for 10 Days, CAP Prov:NIRAJ FLETCHER PA-C 03/25/19 Hydrocodone/Acetaminophen (Harmony 10-325 Tablet) 1 Each Tablet, 1 TAB PO Q6H PRN for PAIN, #20 TAB Prov:NIRAJ FLETCHER PA-C 03/25/19 Hydrocodone/Acetaminophen (Harmony 5-325 Tablet) 1 Each Tablet, 1 TAB PO Q6H PRN for PAIN, #15 TAB Prov:MATEO ROSE PA-C 08/19/18 Ibuprofen* (Motrin*) 800 Mg Tab, 800 MG PO Q6, #30 TAB Prov:MATEO ROSE PA-C 08/19/18 Amoxicillin* (Amoxicillin*) 500 Mg Cap, 500 MG PO BID for 7 Days, CAP Prov:MATEO ROSE PA-C 08/19/18 Reported Medications Ferrous Sulfate* (Ferrous Sulfate*) 325 Mg Tabec, 325 MG PO DAILY, TAB 01/25/18 Folic Acid* (Folic Acid*) 1 Mg Tablet, 1 MG PO DAILY, TAB 01/25/18 [id number] ( 19) 1 Each Tablet, 1 TAB PO DAILY, TAB 01/19/18 Allergies Allergies: Coded Allergies: No Known Allergy (Unverified , 03/25/19) PMhx/Soc History of Surgery: Yes (caesarian section x 2010) Anesthesia Reaction: No Hx Alcohol Use: No Hx Substance Use: No Hx Tobacco Use: No Smoking Status: Never smoker FmHx Family History: No diabetes, No coronary disease, No other Physical Exam Vitals Vital Signs Date Temp Pulse Resp B/P (MAP) Pulse Ox O2 O2 Flow FiO2 Time Delivery Rate 03/25/19 97.9 85 18 147/82 97 06:25 (103) Physical Exam Const: No acute distress Head: Atraumatic Eyes: Normal Conjunctiva ENT: Normal External Ears, left-sided mouth with more lot which is impacted, no obvious drainable abscess or collection. No pain with jaw movement no significant edema. Neck: Full range of motion. No meningismus. Resp: Clear to auscultation bilaterally Cardio: Regular rate and rhythm, no murmurs Abd: Soft, non tender, non distended. Normal bowel sounds Skin: No petechiae or rashes Back: No midline or flank tenderness Ext: No cyanosis, or edema Neur: Awake and alert Psych: Normal Mood and Affect Procedures/MDM 33-year-old female presents with complaint of left-sided dental pain. Patient has an impacted tooth which likely needs extraction. Patient advised to follow- up at appropriate dental clinic to see specialist. Continues to try to get appointment at [facility] as advised by dentist. I will cover with antibiotics as well as appropriate pain medications. I have low suspicion for any acute process warranting emergent care in this setting at this time. Patient advised to return to ED if symptoms worsen. DISPOSITION PLAN: We discussed follow up with the patient's primary care doctor within 24 to 48 hours. Patient counseled regarding my diagnostic impression and care plan. Prior to discharge all questions answered. Pt agrees with treatment plan and understands strict return precautions. Precautionary instructions provided including instructions to return to the ER if not improving or for any worsening or changing symptoms or concerns. Disclaimer: Inadvertent spelling and grammatical errors are likely due to EHR/dictation software use and do not reflect on the overall quality of patient care. Also, please note that the electronic time recorded on this note does not necessarily reflect the actual time of the patient encounter. Departure Diagnosis: Primary Impression: Toothache Condition: Stable Patient Instructions: Dental Pain Referrals: [facility] ([facility] walk in clinic) Additional Instructions: Call your primary care doctor TOMORROW for an appointment during the next 2-3 days.See the doctor sooner or return here if your condition worsens before your appointment time. NIRAJ FLETCHER PA-C Mar 25, 2019 06:54
== END 2019-03-25 07:20 | disposition home or self-care (01) ==
LOC: FTE 06:19
DX: K08.89 Other specified disorders of teeth and supporting structures (principal)
CPT/HCPCS: 99283